=== PATIENT | male | born 1975 ===

== ENCOUNTER 2022-12-12 17:30 | Inpatient (IN) | payer MEDICARE ==
[2022-12-12 18:18] LABS: #Eosinphils 0.1 thou/uL (0.0-0.7); #Lymphocytes 1.2 thou/uL (1.20-3.40); #Monocytes 0.7 thou/uL (0.11-0.59); #Neutrophils 8.5 thou/uL (1.40-6.50); %Basophils 0.1 % (0.0-1.0); %Eosinophils 0.7 % (0.0-10.0); %Lymphocytes 11.1 % (21.0-51.0); %Monocytes 6.9 % (0.0-10.0); %Neutrophils 81.3 % (42.0-75.0); Hemoglobin 11.1 g/dL (14.0-18.0); Mean Corpuscular Hemoglobin 30.1 pg (27.0-31.0); Mean Corpuscular Volume 88.6 fl (78.0-98.0); Mean Platelet Volume 5.7 fL (7.4-10.4); Platelet Count 460 10x3/uL (130-400); RBC Distribution Width 12.9 % (11.5-14.5); White Blood Cell (WBC) Count 10.4 10x3/uL (4.8-10.8)
[2022-12-12 18:34] LABS: ALT (SGPT) 7 U/L (8-55); AST (SGOT) 10 U/L (5-34); Albumin 3.6 g/dL (3.5-5.0); Alkaline Phosphatase 102 U/L (40-110); Anion Gap 18 mmol/L (10-20); BUN (Urea Nitrogen) 35 mg/dL (8.9-20.6); Bilirubin, Total 0.5 mg/dL (0.2-1.2); Calc. Creatinine Clearance 0 mL/min (70-130); Calcium 7.9 mg/dL (7.8-10.44); Carbon Dioxide 20 mmol/L (22-29); Chloride 103 mmol/L (98-107); Estimated GFR 46; Globulin 3.9 g/dL (2.4-3.5); Glucose 106 mg/dL (70-105); Potassium 4.7 mmol/L (3.5-5.1); Protein, Total 7.5 g/dL (6.0-8.3); Sodium 136 mmol/L (136-145)
[2022-12-12 18:39] LABS: Actual Bicarbonate (HCO3v) 23 mEq/L (22-28); Base Excess 0.1 mEq/L (-2.0 to +3.0); Calcium, Ionized (venous) 0.89 mmol/L (1.16-1.32); Chloride (VBG) 102 mmol/L (98-106); Hemoglobin (Hb) 12.6 g/dL (13.1-17.2); Potassium (VBG) 4.47 mmol/L (3.70-5.30); Sodium 135.3 mmol/L (133-146); pH (venous) 7.49 (7.32-7.43)
[2022-12-12] MEDS ORDERED: Cefepime 2 GM VIAL ONE (18:45)
[2022-12-12] MEDS ORDERED: Acetaminophen 500 MG TAB ONE (18:46)
[2022-12-12 19:40] LABS: SARS-CoV-2 NAA Rapid Test Not Detected (NotDetected)
[2022-12-12 19:47] LABS: Bacteria/HPF 4+ HPF (None Seen); Bilirubin Negative (Negative); Blood, Urine Trace (Negative); Clarity Turbid (Clear); Glucose, Urine (Dipstick) Normal (Negative); Ketone, Urine Negative (Negative); Leukocyte 500 Leu/uL (Negative); Nitrite Negative (Negative); Protein, Urine (Dipstick) 30 mg/dL (Neg-Trace); Specific Gravity, Urine 1.014 (1.002-1.036); Squamous Epithelial 0-3 HPF (0-3); Urobilinogen Normal mg/dL (Less than 2); WBC/HPF Greater than 50 HPF (0-3); pH, Urine 7.5 (5.0-9.0)
[2022-12-12] MEDS ORDERED: Acetaminophen 650 MG Suppository PR PRN (21:58)
[2022-12-12] MEDS ORDERED: Ondansetron ODT 4 MG TAB PO PRN (21:58)
[2022-12-12] MEDS ORDERED: Ondansetron PF 4 MG/2 ML Vial IVP PRN (21:58)
[2022-12-12] MEDS ORDERED: Azithromycin 500 MG in Sodium Chloride 0.9% 250 ML 250 ML IVPB SCH (22:30)
[2022-12-13] MEDS ORDERED: Nystatin Powder 15 GM BOT TOP PRN (04:04)
[2022-12-13] MEDS ORDERED: Electrolyte Replacement Protocol 1 EACH FS SCH (04:06)
[2022-12-13] MEDS ORDERED: Guaifenesin DM 100-10/5 ML UDCUP PO PRN (04:20)
[2022-12-13 04:24] LABS: #Eosinphils 0.1 thou/uL (0.0-0.7); #Monocytes 0.8 thou/uL (0.11-0.59); #Neutrophils 5.8 thou/uL (1.40-6.50); %Basophils 0.3 % (0.0-1.0); %Eosinophils 1.3 % (0.0-10.0); %Lymphocytes 13.4 % (21.0-51.0); %Monocytes 10.5 % (0.0-10.0); %Neutrophils 74.6 % (42.0-75.0); Hemoglobin 11.4 g/dL (14.0-18.0); Mean Corpuscular HGB CONC 32.8 g/dL (32.0-36.0); Mean Corpuscular Hemoglobin 29.5 pg (27.0-31.0); Mean Corpuscular Volume 90.1 fl (78.0-98.0); Mean Platelet Volume 5.8 fL (7.4-10.4); Platelet Count 418 10x3/uL (130-400); RBC Distribution Width 13.2 % (11.5-14.5); Red Blood Cell (RBC) Count 3.86 mill/uL (4.70-6.10); White Blood Cell (WBC) Count 7.7 10x3/uL (4.8-10.8)
[2022-12-13 04:38] VITALS: BMI 86.3
[2022-12-13 05:11] LABS: Anion Gap 20 mmol/L (10-20); BUN (Urea Nitrogen) 33 mg/dL (8.9-20.6); Calc. Creatinine Clearance 155 mL/min (70-130); Calcium 7.9 mg/dL (7.8-10.44); Carbon Dioxide 14 mmol/L (22-29); Chloride 105 mmol/L (98-107); Estimated GFR 47; Glucose 89 mg/dL (70-105); Potassium 4.6 mmol/L (3.5-5.1); Sodium 135 mmol/L (136-145)
[2022-12-13 06:21] LABS: Legionella Urinary Ag Negative (Negative); Strep pneumo Urine Ag NEGATIVE (NEGATIVE)
[2022-12-13] MEDS: cefTRIAXone\\ROCEPHIN 1 GM in Sodium Chloride 0.9% 100 ML IVPB SCH (06:29)
[2022-12-13] MEDS: Heparin 5,000 UNITS/ML VIAL SC SCH ×3 (09:33→21:40)
[2022-12-13] MEDS ORDERED: Furosemide 40 MG/4 ML VIAL SLOW IVP SCH (11:00)
[2022-12-13] MEDS: cycloSPORINE, Modified 25 MG CAP PO SCH (21:39)
[2022-12-13] MEDS: Calcitriol 0.25 MCG CAP PO SCH (21:39)
[2022-12-13] MEDS: Mycophenolate 250 MG CAP PO SCH (21:40)
[2022-12-13] MEDS: cycloSPORINE, Modified 100 MG CAP PO SCH (21:40)
[2022-12-14] MEDS: Azithromycin 500 MG in Sodium Chloride 0.9% 250 ML 250 ML IVPB SCH (03:19)
[2022-12-14] MEDS: cefTRIAXone\\ROCEPHIN 1 GM in Sodium Chloride 0.9% 100 ML IVPB SCH (05:25)
[2022-12-14 05:33] LABS: #Eosinphils 0.2 thou/uL (0.0-0.7); #Lymphocytes 1.6 thou/uL (1.20-3.40); #Monocytes 0.8 thou/uL (0.11-0.59); #Neutrophils 6.3 thou/uL (1.40-6.50); %Basophils 0.1 % (0.0-1.0); %Eosinophils 2.1 % (0.0-10.0); %Lymphocytes 18.2 % (21.0-51.0); %Monocytes 8.5 % (0.0-10.0); %Neutrophils 71.2 % (42.0-75.0); Hemoglobin 11.1 g/dL (14.0-18.0); Mean Corpuscular HGB CONC 33.3 g/dL (32.0-36.0); Mean Corpuscular Hemoglobin 30.1 pg (27.0-31.0); Mean Corpuscular Volume 90.5 fl (78.0-98.0); Mean Platelet Volume 5.8 fL (7.4-10.4); Platelet Count 393 10x3/uL (130-400); Red Blood Cell (RBC) Count 3.67 mill/uL (4.70-6.10); White Blood Cell (WBC) Count 8.8 10x3/uL (4.8-10.8)
[2022-12-14 05:54] LABS: Anion Gap 16 mmol/L (10-20); BUN (Urea Nitrogen) 33 mg/dL (8.9-20.6); Calc. Creatinine Clearance 161 mL/min (70-130); Calcium 7.9 mg/dL (7.8-10.44); Carbon Dioxide 21 mmol/L (22-29); Chloride 105 mmol/L (98-107); Estimated GFR 49; Glucose 99 mg/dL (70-105); Potassium 4.1 mmol/L (3.5-5.1); Sodium 138 mmol/L (136-145)
[2022-12-14] MEDS: Mycophenolate 250 MG CAP PO SCH ×2 (10:49→21:47)
[2022-12-14] MEDS: Heparin 5,000 UNITS/ML VIAL SC SCH ×3 (10:50→21:47)
[2022-12-14] MEDS: Calcitriol 0.25 MCG CAP PO SCH ×2 (10:51→21:46)
[2022-12-14] MEDS: cycloSPORINE, Modified 25 MG CAP PO SCH ×2 (10:52→21:46)
[2022-12-14] MEDS: cycloSPORINE, Modified 100 MG CAP PO SCH ×2 (10:53→21:46)
[2022-12-14] MEDS: Acetaminophen 325 MG TAB PO PRN (21:46)
[2022-12-14] MEDS: Acetaminophen/Codeine 30-300mg Tablet PO PRN (23:42)
[2022-12-15 04:00] LABS: #Eosinphils 0.2 thou/uL (0.0-0.7); #Lymphocytes 1.8 thou/uL (1.20-3.40); #Monocytes 0.7 thou/uL (0.11-0.59); #Neutrophils 6.6 thou/uL (1.40-6.50); %Basophils 0.1 % (0.0-1.0); %Lymphocytes 19.5 % (21.0-51.0); %Monocytes 7.4 % (0.0-10.0); Hemoglobin 11.3 g/dL (14.0-18.0); Mean Corpuscular Hemoglobin 29.3 pg (27.0-31.0); Mean Corpuscular Volume 89.1 fl (78.0-98.0); Mean Platelet Volume 5.7 fL (7.4-10.4); Platelet Count 415 10x3/uL (130-400); RBC Distribution Width 12.8 % (11.5-14.5); Red Blood Cell (RBC) Count 3.86 mill/uL (4.70-6.10); White Blood Cell (WBC) Count 9.2 10x3/uL (4.8-10.8)
[2022-12-15] MEDS: Azithromycin 500 MG in Sodium Chloride 0.9% 250 ML 250 ML IVPB SCH (04:02)
[2022-12-15 04:38] LABS: Anion Gap 17 mmol/L (10-20); BUN (Urea Nitrogen) 32 mg/dL (8.9-20.6); Calc. Creatinine Clearance 161 mL/min (70-130); Calcium 8.2 mg/dL (7.8-10.44); Carbon Dioxide 22 mmol/L (22-29); Chloride 103 mmol/L (98-107); Estimated GFR 49; Glucose 106 mg/dL (70-105); Potassium 4.2 mmol/L (3.5-5.1); Sodium 138 mmol/L (136-145)
[2022-12-15] MEDS: cefTRIAXone\\ROCEPHIN 1 GM in Sodium Chloride 0.9% 100 ML IVPB SCH (06:09)
[2022-12-15] MEDS: Heparin 5,000 UNITS/ML VIAL SC SCH ×3 (10:26→21:23)
[2022-12-15] MEDS: Calcitriol 0.25 MCG CAP PO SCH ×2 (10:26→21:22)
[2022-12-15] MEDS: Acetaminophen/Codeine 30-300mg Tablet PO PRN ×3 (10:28→23:41)
[2022-12-15] MEDS: cycloSPORINE, Modified 25 MG CAP PO SCH ×2 (10:28→21:39)
[2022-12-15] MEDS: Mycophenolate 250 MG CAP PO SCH ×2 (10:29→21:46)
[2022-12-15] MEDS: cycloSPORINE, Modified 100 MG CAP PO SCH ×2 (10:31→21:39)
[2022-12-16 06:27] LABS: Anion Gap 15 mmol/L (10-20); BUN (Urea Nitrogen) 31 mg/dL (8.9-20.6); Calc. Creatinine Clearance 164 mL/min (70-130); Carbon Dioxide 23 mmol/L (22-29); Chloride 103 mmol/L (98-107); Estimated GFR 50; Glucose 110 mg/dL (70-105); Potassium 4.3 mmol/L (3.5-5.1); Sodium 137 mmol/L (136-145)
[2022-12-16] MEDS: Azithromycin 250 MG TAB PO SCH (09:18)
[2022-12-16] MEDS: Calcitriol 0.25 MCG CAP PO SCH ×2 (09:18→20:27)
[2022-12-16] MEDS: Heparin 5,000 UNITS/ML VIAL SC SCH ×3 (09:19→20:28)
[2022-12-16] MEDS: cycloSPORINE, Modified 25 MG CAP PO SCH ×2 (09:19→20:27)
[2022-12-16] MEDS: cycloSPORINE, Modified 100 MG CAP PO SCH ×2 (09:19→20:26)
[2022-12-16] MEDS: Mycophenolate 250 MG CAP PO SCH ×2 (09:19→20:29)
[2022-12-16] MEDS: Acetaminophen/Codeine 30-300mg Tablet PO PRN ×2 (09:19→20:27)
[2022-12-17 07:30] LABS: Anion Gap 16 mmol/L (10-20); BUN (Urea Nitrogen) 32 mg/dL (8.9-20.6); Calc. Creatinine Clearance 164 mL/min (70-130); Calcium 8.3 mg/dL (7.8-10.44); Carbon Dioxide 21 mmol/L (22-29); Chloride 102 mmol/L (98-107); Estimated GFR 50; Glucose 102 mg/dL (70-105); Potassium 4.4 mmol/L (3.5-5.1); Sodium 135 mmol/L (136-145)
[2022-12-17] MEDS: Mycophenolate 250 MG CAP PO SCH ×2 (09:59→20:17)
[2022-12-17] MEDS: Heparin 5,000 UNITS/ML VIAL SC SCH ×3 (10:00→20:19)
[2022-12-17] MEDS ORDERED: Gabapentin 100 MG CAP PO SCH (10:00)
[2022-12-17] MEDS: Azithromycin 250 MG TAB PO SCH (10:01)
[2022-12-17] MEDS: Calcitriol 0.25 MCG CAP PO SCH ×2 (10:01→20:16)
[2022-12-17] MEDS: cycloSPORINE, Modified 100 MG CAP PO SCH ×2 (10:02→20:18)
[2022-12-17] MEDS: cycloSPORINE, Modified 25 MG CAP PO SCH ×2 (10:02→20:17)
[2022-12-17] MEDS: Acetaminophen/Codeine 30-300mg Tablet PO PRN ×2 (12:53→20:18)
[2022-12-17] MEDS: Gabapentin 100 MG CAP PO SCH ×2 (14:57→20:19)
[2022-12-18] MEDS: Acetaminophen/Codeine 30-300mg Tablet PO PRN ×2 (05:35→17:23)
[2022-12-18 07:33] LABS: Anion Gap 15 mmol/L (10-20); BUN (Urea Nitrogen) 32 mg/dL (8.9-20.6); Calc. Creatinine Clearance 166 mL/min (70-130); Calcium 8.6 mg/dL (7.8-10.44); Carbon Dioxide 24 mmol/L (22-29); Chloride 101 mmol/L (98-107); Estimated GFR 51; Glucose 110 mg/dL (70-105); Potassium 4.6 mmol/L (3.5-5.1); Sodium 135 mmol/L (136-145)
[2022-12-18] MEDS: Azithromycin 250 MG TAB PO SCH (09:59)
[2022-12-18] MEDS: Mycophenolate 250 MG CAP PO SCH ×2 (09:59→19:58)
[2022-12-18] MEDS: Heparin 5,000 UNITS/ML VIAL SC SCH ×3 (09:59→19:59)
[2022-12-18] MEDS: Calcitriol 0.25 MCG CAP PO SCH ×2 (09:59→19:58)
[2022-12-18] MEDS: cycloSPORINE, Modified 25 MG CAP PO SCH ×3 (10:00→20:00)
[2022-12-18] MEDS: cycloSPORINE, Modified 100 MG CAP PO SCH (10:00)
[2022-12-18] MEDS: Gabapentin 100 MG CAP PO SCH ×3 (10:00→19:59)
[2022-12-19] MEDS: Acetaminophen 325 MG TAB PO PRN (04:39)
[2022-12-19 08:12] LABS: Anion Gap 15 mmol/L (10-20); BUN (Urea Nitrogen) 34 mg/dL (8.9-20.6); Calc. Creatinine Clearance 167 mL/min (70-130); Calcium 9.1 mg/dL (7.8-10.44); Carbon Dioxide 25 mmol/L (22-29); Chloride 101 mmol/L (98-107); Estimated GFR 51; Glucose 103 mg/dL (70-105); Potassium 4.8 mmol/L (3.5-5.1); Sodium 136 mmol/L (136-145)
[2022-12-19] MEDS: Gabapentin 100 MG CAP PO SCH ×3 (08:25→19:48)
[2022-12-19] MEDS: Heparin 5,000 UNITS/ML VIAL SC SCH ×3 (08:25→19:48)
[2022-12-19] MEDS: Calcitriol 0.25 MCG CAP PO SCH ×2 (08:25→19:48)
[2022-12-19] MEDS: Azithromycin 250 MG TAB PO SCH (08:25)
[2022-12-19] MEDS: cycloSPORINE, Modified 25 MG CAP PO SCH ×4 (08:26→19:49)
[2022-12-19] MEDS: Mycophenolate 250 MG CAP PO SCH ×2 (08:28→19:48)
[2022-12-19] MEDS: Acetaminophen/Codeine 30-300mg Tablet PO PRN ×2 (11:54→20:39)
[2022-12-20] MEDS: Acetaminophen/Codeine 30-300mg Tablet PO PRN ×2 (03:55→15:39)
[2022-12-20 07:49] LABS: Anion Gap 15 mmol/L (10-20); BUN (Urea Nitrogen) 35 mg/dL (8.9-20.6); Calc. Creatinine Clearance 159 mL/min (70-130); Calcium 9.3 mg/dL (7.8-10.44); Carbon Dioxide 24 mmol/L (22-29); Chloride 100 mmol/L (98-107); Estimated GFR 48; Glucose 126 mg/dL (70-105); Potassium 4.9 mmol/L (3.5-5.1); Sodium 134 mmol/L (136-145)
[2022-12-20] MEDS: Gabapentin 100 MG CAP PO SCH ×3 (08:46→20:24)
[2022-12-20] MEDS: Heparin 5,000 UNITS/ML VIAL SC SCH ×3 (08:46→20:24)
[2022-12-20] MEDS: Mycophenolate 250 MG CAP PO SCH ×2 (08:46→20:48)
[2022-12-20] MEDS: Calcitriol 0.25 MCG CAP PO SCH ×2 (08:46→20:18)
[2022-12-20] MEDS: cycloSPORINE, Modified 25 MG CAP PO SCH ×4 (08:47→20:19)
[2022-12-21] MEDS: Acetaminophen/Codeine 30-300mg Tablet PO PRN ×3 (01:29→20:01)
[2022-12-21 08:24] LABS: Anion Gap 14 mmol/L (10-20); BUN (Urea Nitrogen) 37 mg/dL (8.9-20.6); Calc. Creatinine Clearance 178 mL/min (70-130); Calcium 9.6 mg/dL (7.8-10.44); Carbon Dioxide 26 mmol/L (22-29); Chloride 100 mmol/L (98-107); Estimated GFR 55; Glucose 107 mg/dL (70-105); Potassium 4.9 mmol/L (3.5-5.1); Sodium 135 mmol/L (136-145)
[2022-12-21] MEDS: Calcitriol 0.25 MCG CAP PO SCH ×2 (10:19→20:00)
[2022-12-21] MEDS: Gabapentin 100 MG CAP PO SCH ×3 (10:19→20:01)
[2022-12-21] MEDS: Heparin 5,000 UNITS/ML VIAL SC SCH ×3 (10:19→20:01)
[2022-12-21] MEDS: cycloSPORINE, Modified 25 MG CAP PO SCH ×4 (10:20→20:02)
[2022-12-21] MEDS: Mycophenolate 250 MG CAP PO SCH ×2 (10:20→20:01)
[2022-12-22] MEDS: Acetaminophen/Codeine 30-300mg Tablet PO PRN ×2 (03:20→09:39)
[2022-12-22 07:13] LABS: Anion Gap 16 mmol/L (10-20); BUN (Urea Nitrogen) 37 mg/dL (8.9-20.6); Calc. Creatinine Clearance 182 mL/min (70-130); Calcium 9.6 mg/dL (7.8-10.44); Carbon Dioxide 26 mmol/L (22-29); Chloride 99 mmol/L (98-107); Estimated GFR 57; Glucose 105 mg/dL (70-105); Potassium 5.2 mmol/L (3.5-5.1); Sodium 136 mmol/L (136-145)
[2022-12-22] MEDS: cycloSPORINE, Modified 25 MG CAP PO SCH ×3 (08:13→20:38)
[2022-12-22] MEDS: Mycophenolate 250 MG CAP PO SCH ×2 (08:15→20:38)
[2022-12-22] MEDS: Calcitriol 0.25 MCG CAP PO SCH ×2 (08:16→20:38)
[2022-12-22] MEDS: Heparin 5,000 UNITS/ML VIAL SC SCH ×2 (08:16→15:46)
[2022-12-22] MEDS: Gabapentin 100 MG CAP PO SCH ×3 (08:16→20:38)
[2022-12-22] MEDS: Cyclobenzaprine 10 MG TAB PO PRN (15:45)
[2022-12-22 15:47] LABS: Anion Gap 17 mmol/L (10-20); BUN (Urea Nitrogen) 37 mg/dL (8.9-20.6); Calc. Creatinine Clearance 174 mL/min (70-130); Calcium 9.8 mg/dL (7.8-10.44); Carbon Dioxide 25 mmol/L (22-29); Chloride 99 mmol/L (98-107); Estimated GFR 54; Glucose 118 mg/dL (70-105); Potassium 5.3 mmol/L (3.5-5.1); Sodium 136 mmol/L (136-145)
[2022-12-22 17:33] LABS: #Eosinphils 0.3 thou/uL (0.0-0.7); #Lymphocytes 1.9 thou/uL (1.20-3.40); #Monocytes 1.2 thou/uL (0.11-0.59); #Neutrophils 7.5 thou/uL (1.40-6.50); %Basophils 0.1 % (0.0-1.0); %Lymphocytes 17.7 % (21.0-51.0); %Monocytes 11.1 % (0.0-10.0); %Neutrophils 68.1 % (42.0-75.0); Hemoglobin 11.1 g/dL (14.0-18.0); Mean Corpuscular HGB CONC 33.1 g/dL (32.0-36.0); Mean Corpuscular Hemoglobin 29.8 pg (27.0-31.0); Mean Platelet Volume 5.7 fL (7.4-10.4); Platelet Count 582 10x3/uL (130-400); RBC Distribution Width 12.5 % (11.5-14.5); Red Blood Cell (RBC) Count 3.74 mill/uL (4.70-6.10)
[2022-12-22 17:52] LABS: INR-International Normal Ratio 1.2; PTT 52.1 sec (22.9-36.1); Prothrombin Time 15.5 sec (12.0-14.7)
[2022-12-22] MEDS: cycloSPORINE, Modified 100 MG CAP PO SCH (20:38)
[2022-12-22] MEDS: Apixaban 5 MG TAB PO SCH (20:40)
[2022-12-22] MEDS: Acetaminophen 325 MG TAB PO PRN (20:45)
[2022-12-22] MEDS: PRAVASTATIN 20 MG PO SCH (20:45)
[2022-12-23] MEDS: Acetaminophen/Codeine 30-300mg Tablet PO PRN ×2 (01:59→15:50)
[2022-12-23] MEDS: Cyclobenzaprine 10 MG TAB PO PRN ×2 (01:59→15:50)
[2022-12-23 07:51] LABS: #Eosinphils 0.2 thou/uL (0.0-0.7); #Neutrophils 6.3 thou/uL (1.40-6.50); %Basophils 0.4 % (0.0-1.0); %Eosinophils 2.3 % (0.0-10.0); %Lymphocytes 21.1 % (21.0-51.0); %Monocytes 10.7 % (0.0-10.0); %Neutrophils 65.5 % (42.0-75.0); Hemoglobin 10.6 g/dL (14.0-18.0); Mean Corpuscular Hemoglobin 28.6 pg (27.0-31.0); Mean Corpuscular Volume 89.4 fl (78.0-98.0); Mean Platelet Volume 5.8 fL (7.4-10.4); Platelet Count 574 10x3/uL (130-400); RBC Distribution Width 12.4 % (11.5-14.5); Red Blood Cell (RBC) Count 3.71 mill/uL (4.70-6.10); White Blood Cell (WBC) Count 9.6 10x3/uL (4.8-10.8)
[2022-12-23 08:30] LABS: ALT (SGPT) Less than 7 U/L (8-55); AST (SGOT) 11 U/L (5-34); Albumin 3.1 g/dL (3.5-5.0); Alkaline Phosphatase 100 U/L (40-110); Bilirubin, Direct 1.2 mg/dL (0.1-0.3); Bilirubin, Total 1.4 mg/dL (0.2-1.2); Protein, Total 7.9 g/dL (6.0-8.3)
[2022-12-23 08:31] LABS: Anion Gap 16 mmol/L (10-20); BUN (Urea Nitrogen) 40 mg/dL (8.9-20.6); Calc. Creatinine Clearance 172 mL/min (70-130); Carbon Dioxide 26 mmol/L (22-29); Cardiac Risk 4.4 (Less than 4.5); Chloride 98 mmol/L (98-107); Cholesterol 158 mg/dl (< 200 Desired); Estimated GFR 53; Glucose 105 mg/dL (70-105); HDL Cholesterol 36 mg/dL (>60 Neg Risk); LDL Cholesterol, Calculated 88 mg/dL; Magnesium 2.2 mg/dL (1.6-2.6); Potassium 5.1 mmol/L (3.5-5.1); Sodium 135 mmol/L (136-145); Triglycerides 171 mg/dL (Less than 150)
[2022-12-23 08:33] LABS: Hemoglobin A1c 5.1 % (4.0-6.0)
[2022-12-23] MEDS: Apixaban 5 MG TAB PO SCH ×2 (10:11→20:33)
[2022-12-23] MEDS: Mycophenolate 250 MG CAP PO SCH ×2 (10:12→20:34)
[2022-12-23] MEDS: Calcitriol 0.25 MCG CAP PO SCH ×2 (10:12→20:33)
[2022-12-23] MEDS: Gabapentin 100 MG CAP PO SCH ×3 (10:12→20:34)
[2022-12-23] MEDS: cycloSPORINE, Modified 25 MG CAP PO SCH ×2 (10:13→20:35)
[2022-12-23] MEDS: cycloSPORINE, Modified 100 MG CAP PO SCH ×2 (10:13→20:35)
[2022-12-23] MEDS: PRAVASTATIN 20 MG PO SCH (20:33)
[2022-12-24] MEDS: Acetaminophen/Codeine 30-300mg Tablet PO PRN ×2 (02:37→13:32)
[2022-12-24] MEDS: Cyclobenzaprine 10 MG TAB PO PRN (02:37)
[2022-12-24 07:34] LABS: #Eosinphils 0.4 thou/uL (0.0-0.7); #Lymphocytes 2.2 thou/uL (1.20-3.40); #Monocytes 1.2 thou/uL (0.11-0.59); #Neutrophils 7.3 thou/uL (1.40-6.50); %Basophils 0.4 % (0.0-1.0); %Eosinophils 3.3 % (0.0-10.0); %Lymphocytes 19.6 % (21.0-51.0); %Monocytes 10.9 % (0.0-10.0); %Neutrophils 65.7 % (42.0-75.0); Hemoglobin 10.6 g/dL (14.0-18.0); Mean Corpuscular HGB CONC 32.4 g/dL (32.0-36.0); Mean Corpuscular Hemoglobin 29.2 pg (27.0-31.0); Mean Corpuscular Volume 90.1 fl (78.0-98.0); Mean Platelet Volume 5.9 fL (7.4-10.4); Platelet Count 594 10x3/uL (130-400); RBC Distribution Width 12.4 % (11.5-14.5); Red Blood Cell (RBC) Count 3.64 mill/uL (4.70-6.10); White Blood Cell (WBC) Count 11.2 10x3/uL (4.8-10.8)
[2022-12-24 07:50] LABS: Anion Gap 14 mmol/L (10-20); BUN (Urea Nitrogen) 41 mg/dL (8.9-20.6); Calc. Creatinine Clearance 164 mL/min (70-130); Calcium 10.3 mg/dL (7.8-10.44); Carbon Dioxide 28 mmol/L (22-29); Chloride 98 mmol/L (98-107); Estimated GFR 50; Glucose 112 mg/dL (70-105); Magnesium 2.3 mg/dL (1.6-2.6); Potassium 5.3 mmol/L (3.5-5.1); Sodium 135 mmol/L (136-145)
[2022-12-24] MEDS: Mycophenolate 250 MG CAP PO SCH (10:00)
[2022-12-24] MEDS: Apixaban 5 MG TAB PO SCH (10:00)
[2022-12-24] MEDS: Gabapentin 100 MG CAP PO SCH (10:00)
[2022-12-24] MEDS: Calcitriol 0.25 MCG CAP PO SCH (10:00)
[2022-12-24] MEDS: cycloSPORINE, Modified 25 MG CAP PO SCH (10:01)
[2022-12-24] MEDS: cycloSPORINE, Modified 100 MG CAP PO SCH (10:01)
[2022-12-24 11:47] VITALS: TEMP 98.1
[2022-12-24 12:44] VITALS: BP 141/82
[2022-12-29] MEDS ORDERED: Apixaban 5 MG TAB PO SCH (21:00)
== END 2022-12-24 14:05 | DRG 193 ==
LOC: ERS 17:30 → IMCU/EMU 21:21 → T4-B 12-15 20:22
PROVIDERS: ADMIT Student in an Organized Health Care Education/Training Program; ATTEND Family Medicine
DX: J18.9 Pneumonia, unspecified organism (principal); J96.21 Acute and chronic respiratory failure with hypoxia; Z94.0 Kidney transplant status; N17.9 Acute kidney failure, unspecified; N39.0 Urinary tract infection, site not specified; T86.19 Other complication of kidney transplant; Z68.45 Body mass index [BMI] 70 or greater, adult; E87.20 Acidosis, unspecified; D84.821 Immunodeficiency due to drugs; E66.01 Morbid (severe) obesity due to excess calories; I12.9 Hypertensive chronic kidney disease with stage 1 through stage 4 chronic kidney disease, or unspecified chronic kidney disease; N18.9 Chronic kidney disease, unspecified; G47.33 Obstructive sleep apnea (adult) (pediatric); D63.1 Anemia in chronic kidney disease; N18.30 Chronic kidney disease, stage 3 unspecified; Z88.8 Allergy status to other drugs, medicaments and biological substances; Z79.899 Other long term (current) drug therapy; Z99.89 Dependence on other enabling machines and devices
CPT/HCPCS: 36415; 71045; 80048; 80053; 80061; 80076; 81003; 81015; 82805; 83036; 83605; 83735; 83880; 84145; 84484; 85025; 85610; 85730; 86850; 86900; 86901; 87040; 87086; 87449; 87899; 93005; 93970; 94660; 94760; 96374; J0456; J0692; J0696; J1644; J1940; J3490; J7050; J7502; J7515; J7517